=== PATIENT | female | born 1965 | race Asian ===

== ENCOUNTER 2023-09-30 07:56 | Outpatient (CLI) | payer SELFPAY ==
--- NOTE | ~2023-09-30 | MMUS_ITS ---
EXAMINATION: MM diagnostic sharon BI w jayda, US breast BI complete HISTORY: Right breast lump. Bilateral abnormal 09/30/2023 diagnostic mammogram TECHNIQUE: Full field and spot 3-D tomosynthesis images of both breasts were performed and synthetic 2-D images were generated. CAD analysis was submitted and interpreted. High resolution complete bilat era breast ultrasound examination coronal 4 quadrants and subareolar areas was performed. COMPARISON: 11/2012 bilateral screening mammogram BREAST PARENCHYMAL COMPOSITION: The breasts are extremely dense, which lowers the sensitivity of mamm ography. FINDINGS: MAMMOGRAPHIC FINDINGS: Approximately 7 mm thin-walled will cyst is noted in the right axillary tail. Irregular approximately 6.4 x 8.6 mm opacity is suggested in the outer mid right breast (craniocaudal Tomosynthesis image 14/34). There is very suspicious prominent architectural distortion/spiculation in the inner aspect of the mi d to upper medial left breast. Bilateral complete breast ultrasound examination was performed. ULTRASOUND: Right axilla at area of palpable abnormality: 6 x 8 x 9 mm irregular hypoechoic solid lesion with dustin e internal vascularity, suspicious for metastatic lymph nodes 11:00 2.5 cm from nipple: Irregular poorly circumscribed hypoechoic solid lesion measuring approximat jet 6 x 11 x 7.4 mm, with prominent internal vascularity, highly suspicious for malignancy. Left breast: 11:00 2.5 cm from nipple: Irregular poorly circumscribed hypoechoic solid lesion measuring approximat jet 8 x 18 x 21 mm with prominent internal vascularity, highly suspicious for malignancy IMPRESSION: 1. Highly suspicious right 11:00 up to 11 mm mass and probable right 9 mm metastatic axillary lymph n ode 2. Highly suspicious left 11:00 up to 21 mm mass BI-RADS category 5, highly suggestive of malignancy; appropriate action should be taken. Consider bilateral 11:00 and right axillary node ultrasound-guided biopsies PACS shows referring physician as unknown. On 10/17/[address] Webb notified [facility] Edna Prater and requested information necessary to contact the referrer, or patient with results an d recommendation for bilateral ultrasound guided breast biopsies Reviewed, dictated and finalized at location A. IMPRESSION: 1. Highly suspicious right 11:00 up to 11 mm mass and probable right 9 mm metas tatic axillary lymph node 2. Highly suspicious left 11:00 up to 21 mm mass BI-RADS category 5, highly suggestive of malignancy; appropriate action should be taken. Consider bilateral 11:00 and right axillary node ultrasound-guided biopsies PACS shows referring physician as unknown. On 10/17/[address] Leti valdovinos notified [facility] Director Priscilla Prater and requested information necessary to cont act the referrer, or patient with results and recommendation for bilateral ultr asound guided breast biopsies
== END 2023-09-30 07:57 ==
DX: N63.11 Unspecified lump in the right breast, upper outer quadrant (principal); I72.9 Aneurysm of unspecified site; R92.8 Other abnormal and inconclusive findings on diagnostic imaging of breast
CPT/HCPCS: 76641; 77062; 77066; G0279